=== PATIENT | female | born 1980 | race African-American/Black ===

== ENCOUNTER 2019-07-27 07:28 | Emergency (ER) | payer MEDICAID, OTHER ==
[~2019-07-27] VITALS: Ht 147.3 cm; Wt 68.3 kg
[2019-07-27 07:32] VITALS: BP 128/87
--- NOTE | 2019-07-27 08:23 | NUR ---
PATIENT PRESENTS TO ED C/O BILATERAL LEG PAIN WHICH RADIATES TO LOWER ABDOMEN AND FLANK AREA. PT STATES THAT SHE FEELS NUMBNESS AND THROBBING 7/10 PAIN, WHICH IS USUALLY ALLEVIATED BY SITITNG. PT TOOK MOTRIN WHICH PROVIDED MINIMAL RELIEF. +NAUSEA, -VOMITING. ABDOMEN TENDER, MORE ON R SIDE. NORMOACTIVE BOWEL SOUNDS. PT ALSO STATES STRONG AMMONIA-LIKE SMELL OF URINE THIS MORNING. -DYSURIA, -NOCTURIA, -D/C. LBM: 3 DAYS AGO, NORMALLY EVERYDAY. VSS; PATIENT POSITIONED FOR COMFORT; HOB ELEVATED; BEDRAILS UP X2; BED DOWN. ER MD MADE AWARE OF PT STATUS. PMH: SCIATICA MEDS: MOTRIN PRN ALLERGIES: SULFA, ERYTHROMYCIN
[2019-07-27 08:35] VITALS: BP 128/87
== END 2019-07-27 08:35 | disposition home or self-care (01) ==
LOC: MED 07:28
DX: N39.0 Urinary tract infection, site not specified (principal); K59.00 Constipation, unspecified; Z88.1 Allergy status to other antibiotic agents; Z98.890 Other specified postprocedural states
CPT/HCPCS: 81002; 81025; 99283

== ENCOUNTER 2019-07-31 14:25 | Emergency (ER) | payer OTHER ==
[~2019-07-31] VITALS: Ht 149.9 cm; Wt 68.0 kg
[2019-07-31 14:45] VITALS: BP 139/73
[2019-07-31 15:59] LABS: BASOPHILS % (AUTO) 0.4 % (0.0-2.0); EOSINOPHILS # (AUTO) 0.1 K/uL (0-0.4); EOSINOPHILS % (AUTO) 0.9 % (0.0-4.0); HEMATOCRIT 38.9 % (36-48); HEMOGLOBIN 12.6 g/dL (12.0-16.0); LYMPHOCYTES # (AUTO) 2.3 K/uL (2.5-16.5); LYMPHOCYTES % (AUTO) 26.7 % (20.5-51.1); MEAN CORPUSCULAR HEMOGLOBIN 25 pg (27-31); MEAN CORPUSCULAR HGB CONC 32 g/dL (33-37); MEAN CORPUSCULAR VOLUME 76.3 fL (80-94); MONOCYTES # (AUTO) 0.5 K/uL (0.8-1.0); NEUTROPHILS # (AUTO) 5.7 K/uL (1.8-7.7); PLATELET COUNT (AUTO) 245 K/uL (140-450); RED BLOOD CELL COUNT(AUTO) 5.09 MIL/uL (4.20-5.40); RED CELL DISTRIBUTION WIDTH 14.6 % (11.6-13.7); WHITE BLOOD COUNT (AUTO) 8.7 K/uL (4.8-10.8)
[2019-07-31 16:17] LABS: ALBUMIN 3.6 g/dL (3.4-5.0); CARBON DIOXIDE 26.1 mmol/L (21-32); CREATININE 0.7 mg/dL (0.6-1.3); POTASSIUM 4.1 mmol/L (3.5-5.1); TOTAL BILIRUBIN 0.3 mg/dL (0.0-1.0)
[2019-07-31] MEDS ORDERED: KETOROLAC 30 MG/ML VIAL IM ONE (17:05)
[2019-07-31 17:23] LABS: APPEARANCE,URINE CLEAR (CLEAR); BILIRUBIN,URINE NEGATIVE (NEGATIVE); BLOOD, URINE NEGATIVE (NEGATIVE); COLOR,URINE YELLOW (YELLOW); LEUKOCYTE ESTERASE ,URINE NEGATIVE (NEGATIVE); NITRITE, URINE NEGATIVE (NEGATIVE); PH,URINE 5.5 (5.0-9.0); UGLUCOSE NEGATIVE (NEGATIVE)
[2019-07-31 18:23] VITALS: BP 114/73
== END 2019-07-31 18:23 | disposition home or self-care (01) ==
LOC: MED 14:25
DX: D25.9 Leiomyoma of uterus, unspecified (principal); M79.604 Pain in right leg; M79.605 Pain in left leg; Z88.1 Allergy status to other antibiotic agents; Z98.890 Other specified postprocedural states; Z87.442 Personal history of urinary calculi
CPT/HCPCS: 36415; 76856; 80053; 81003; 81025; 85025; 93976; 96372; 99284; J1885; Q0092; 81002

== ENCOUNTER 2019-11-12 13:41 | Emergency (ER) | payer OTHER ==
[~2019-11-12] VITALS: Ht 149.9 cm; Wt 68.0 kg
[2019-11-12 13:50] VITALS: BP 124/97
[2019-11-12] MEDS ORDERED: ACETAMINOPHEN EXTRA STRENGTH 500 MG TAB PO ONE (14:00)
--- NOTE | 2019-11-12 14:10 | NUR ---
39/F C/O COUGHING BLOOD, RESOLVED EPITAXIS, BODYACHES, CHILLS, HEADACHE, DIZZINESS, X2 DAYS.. DENIES MED HX OR RX. PATIENT STATES PAIN OF 10/10 AT THIS TIME.PATIENT POSITIONED FOR COMFORT; HOB ELEVATED; BEDRAILS UP X1; BED DOWN. ER MD MADE AWARE OF PT STATUS.
[2019-11-12] MEDS ORDERED: ONDANSETRON 4 MG/2 ML VIAL IVP ONE (14:30)
[2019-11-12] MEDS ORDERED: NACL 0.9% 1,000 ML IV ONE (14:30)
[2019-11-12] MEDS ORDERED: KETOROLAC 30 MG/ML VIAL IVP ONE (14:30)
[2019-11-12] MEDS ORDERED: PROMETH/CODEINE 6.25-10MG/5ML 5 ML UDC PO ONE (15:45)
[2019-11-12 16:05] VITALS: BP 119/78
--- NOTE | 2019-11-12 16:05 | NUR ---
Patient discharged with v/s stable. Written and verbal after care instructions given and explained. Patient alert, oriented and verbalized understanding of instructions. Ambulatory with steady gait. All questions addressed prior to discharge. ID band removed. Patient advised to follow up with PMD. Rx of IBUPROFEN, ZOFRAN & PROMETHAZINE given. Patient educated on indication of medication including possible reaction and side effects. Opportunity to ask questions provided and answered.
== END 2019-11-12 16:05 | disposition home or self-care (01) ==
LOC: MED 13:41
DX: J20.9 Acute bronchitis, unspecified (principal); Z88.1 Allergy status to other antibiotic agents
CPT/HCPCS: 71046; 81002; 81025; 87804; 96361; 96374; 96375; 99284; J1885; J2405; J7030

== ENCOUNTER 2020-04-13 17:18 | Emergency (ER) | payer OTHER ==
[~2020-04-13] VITALS: Ht 149.9 cm; Wt 63.5 kg
[2020-04-13 17:34] VITALS: BP 147/92
[2020-04-13] MEDS ORDERED: PROCHLORPERAZINE 5 MG TAB PO STA (17:38)
[2020-04-13] MEDS ORDERED: HYDROcodone/APAP 5/325 MG 1 TAB TAB PO ONE (18:40)
[2020-04-13 19:00] VITALS: BP 134/82
== END 2020-04-13 18:59 | disposition home or self-care (01) ==
LOC: MED 17:18
DX: S06.0X0A Concussion without loss of consciousness, initial encounter (principal); S16.1XXA Strain of muscle, fascia and tendon at neck level, initial encounter; V09.9XXA Pedestrian injured in unspecified transport accident, initial encounter; Y93.89 Activity, other specified; Y92.89 Other specified places as the place of occurrence of the external cause; Y99.8 Other external cause status
CPT/HCPCS: 70450; 72125; 99285; Q0164

== ENCOUNTER 2021-02-08 16:02 | Emergency (ER) | payer MEDICAID, OTHER ==
[~2021-02-08] VITALS: Ht 149.9 cm; Wt 63.5 kg
[2021-02-08 16:04] VITALS: BP 105/59
--- NOTE | 2021-02-08 16:10 | NUR ---
Patient wheelchair assisted to bed 9.
--- NOTE | 2021-02-08 16:15 | NUR ---
40 y/o F coming in from home with c/c RLQ abdominal pain x 2.5-3 weeks. Patient A&Ox4, wheelchair assisted and states 3 days ago, pain worsen despite pain management. Patient states associated nausea without vomiting. Patient reports pain 10/10, shooting/constant, radiating to right anterior/posterior thigh and R buttocks. Patient states Motrin 400mg @ 1500 & prescribed Flexeril @ 1300 without relief. Patient reports pain worsening with walking. Last BM today; normal. Pt denies urinary symptoms, SOB, chest pain, back pain, dizziness, headache. Pt placed into a gown, surveillance monitor. Respirations even/unlabored. Bed locked in lowest position, side rails x 1, call light in reach. PMH: Sciatica Meds: Flexeril Allergies: Erythromycin, sulfa Sx: uterine fibroids 2lbs removed 10/2200; cholecystectomy 10/2020.
--- NOTE | 2021-02-08 16:35 | NUR ---
Dr. Parker is evaluating patient at bedside.
[2021-02-08] MEDS: NACL 0.9% 1,000 ML IV ONE (16:58)
[2021-02-08 17:11] LABS: BASOPHILS % (AUTO) 0.5 % (0.0-2.0); EOSINOPHILS # (AUTO) 0.1 K/uL (0-0.4); EOSINOPHILS % (AUTO) 1.3 % (0.0-4.0); HEMATOCRIT 40.1 % (36-48); HEMOGLOBIN 12.8 g/dL (12.0-16.0); LYMPHOCYTES # (AUTO) 2.3 K/uL (2.5-16.5); LYMPHOCYTES % (AUTO) 25.9 % (20.5-51.1); MEAN CORPUSCULAR HEMOGLOBIN 23 pg (27-31); MEAN CORPUSCULAR HGB CONC 32 g/dL (33-37); MEAN CORPUSCULAR VOLUME 71.4 fL (80-94); MONOCYTES # (AUTO) 0.5 K/uL (0.8-1.0); MONOCYTES % (AUTO) 5.7 % (1.7-9.3); NEUTROPHILS # (AUTO) 5.9 K/uL (1.8-7.7); NEUTROPHILS % (AUTO) 66.6 % (42.2-75.2); PLATELET COUNT (AUTO) 314 K/uL (140-450); RED BLOOD CELL COUNT(AUTO) 5.62 MIL/uL (4.20-5.40); RED CELL DISTRIBUTION WIDTH 16.5 % (11.6-13.7); WHITE BLOOD COUNT (AUTO) 8.8 K/uL (4.8-10.8)
[2021-02-08] MEDS: ONDANSETRON 4 MG/2 ML VIAL IVP ONE (17:12)
[2021-02-08] MEDS: MORPHINE SULFATE 4 MG/ML SYR IVP ONE (17:13)
--- NOTE | 2021-02-08 17:22 | NUR ---
Patient ambulated to restroom for urine sample.
--- NOTE | 2021-02-08 17:22 | NUR ---
Pt reports positive relief; denies any nausea. States pain 7/10.
--- NOTE | 2021-02-08 17:22 | NUR ---
Pt signed consent form for CT Abdomen/Pelvis.
[2021-02-08 17:24] LABS: ALBUMIN 4.4 g/dL (3.4-5.0); ANION GAP 14.9 (8-16); CARBON DIOXIDE 23.7 mmol/L (21-32); CREATININE 0.8 mg/dL (0.6-1.3); POTASSIUM 3.6 mmol/L (3.5-5.1); TOTAL BILIRUBIN 0.7 mg/dL (0.0-1.0)
--- NOTE | 2021-02-08 17:33 | NUR ---
Pt ambulated from restroom back to bed; IVF continued. Bed locked in lowest position, side rails x 1, call light in reach.
[2021-02-08] MEDS ORDERED: diphenhydrAMINE 12.5 MG/5 ML UDC ONE (17:47)
[2021-02-08] MEDS ORDERED: diphenhydrAMINE 50 MG/ML VIAL ONE (17:48)
[2021-02-08] MEDS: diphenhydrAMINE 50 MG/ML VIAL IVP ONE (17:55)
--- NOTE | 2021-02-08 17:55 | NUR ---
ACCIDENTLY REQUESTED TO PULL OUT BENEDRYL P ON PYXIS, WRONG ORDER. NEVER PULLED OR GAVE MEDICATION.
--- NOTE | 2021-02-08 18:35 | NUR ---
Patient resting in position of comfort. Respirations even/unlabored. Bed locked in lowest position, side rails x 1, call light in reach.
[2021-02-08] MEDS ORDERED: ACET-8386 PO (19:09)
--- NOTE | 2021-02-08 19:13 | NUR ---
Pt states pain 0/10.
[2021-02-08 19:25] VITALS: BP 111/69
--- NOTE | 2021-02-08 19:25 | NUR ---
Patient discharged with v/s stable. Written and verbal after care instructions ON ABDOMINAL PAIN given and explained. Patient alert, oriented and verbalized understanding of instructions. Ambulatory with steady gait. All questions addressed prior to discharge. ID band removed. Patient advised to follow up with PMD. Rx of HYDROCODONE/ACETAMINOPHEN 5-325MG given. Patient educated on indication of medication including possible reaction and side effects. Opportunity to ask questions provided and answered.
== END 2021-02-08 19:25 | disposition home or self-care (01) ==
LOC: MED 16:02
DX: D25.9 Leiomyoma of uterus, unspecified (principal); Z88.2 Allergy status to sulfonamides
CPT/HCPCS: 36415; 74177; 80053; 83690; 84484; 84702; 85025; 96361; 96374; 96375; 99285; J1200; J2270; J2405; J7030; Q0163; Q9967

== ENCOUNTER 2021-02-16 02:45 | Emergency (ER) | payer MEDICAID ==
[~2021-02-16] VITALS: Ht 149.9 cm; Wt 63.5 kg
[~2021-02-16 02:45] MED LIST: ACET-8386 PO
[2021-02-16 02:52] VITALS: BP 150/60
--- NOTE | 2021-02-16 02:52 | NUR ---
TO BED AMBULATORY
--- NOTE | 2021-02-16 03:08 | NUR ---
ERMD AT BEDSIDE FOR MEDICAL EVALUATION.
[2021-02-16] MEDS ORDERED: NACL 0.9% 1,000 ML IV ONE (03:10)
[2021-02-16] MEDS ORDERED: ONDANSETRON 4 MG/2 ML VIAL IVP ONE (03:10)
[2021-02-16] MEDS ORDERED: MAGNESIUM CITRATE 300 ML BTL PO ONE (03:10)
[2021-02-16] MEDS ORDERED: KETOROLAC 30 MG/ML VIAL IVP ONE (03:10)
[2021-02-16] MEDS ORDERED: SODIUM PHOSPHATE 118 ML ENEM RC ONE (03:10)
--- NOTE | 2021-02-16 03:10 | NUR ---
PATIENT 40 Y/O FEMALE BIB SELF FOR C/O RUQ PAIN RADIATING TO R LOWER BACK/ FLANK. PER PATIENT HAS HAD THIS TYPE OF PAIN BEFORE AND BELIVES IT IS D/T CONSTIPATION X 4 DAYS. PATIENT STATES, "I'VE HAD A LONG HISTORY OF STOMACH ISSUES BUT NORMALLY IM OK WITH A GOOD DIET." PER PATIENT HAS NOT HAD A BM X 4 DAYS. PATIENT ABD IS SOFT, ROUND, AND NON-TENDER TO TOUCH. PATIENT ALSO HAS C/O NAUSEA WITH NO EPISODES OF VOMITING. MEDHX: IBS, FIBROIDS, "CHRONIC STOMACH ISSUES." SEE ALLERGY LIST.
--- NOTE | 2021-02-16 03:39 | NUR ---
PATIENT AMBULATED TO RESTROOM WITH STEADY GAIT.
[2021-02-16 03:43] LABS: BASOPHILS # (AUTO) 0.1 K/uL (0.00-0.22); BASOPHILS % (AUTO) 0.7 % (0.0-2.0); EOSINOPHILS # (AUTO) 0.1 K/uL (0-0.4); EOSINOPHILS % (AUTO) 1.4 % (0.0-4.0); HEMATOCRIT 38.5 % (36-48); HEMOGLOBIN 12.4 g/dL (12.0-16.0); LYMPHOCYTES # (AUTO) 3.4 K/uL (2.5-16.5); LYMPHOCYTES % (AUTO) 34.4 % (20.5-51.1); MEAN CORPUSCULAR HEMOGLOBIN 23 pg (27-31); MEAN CORPUSCULAR HGB CONC 32 g/dL (33-37); MEAN CORPUSCULAR VOLUME 71.9 fL (80-94); MONOCYTES # (AUTO) 0.6 K/uL (0.8-1.0); MONOCYTES % (AUTO) 6.5 % (1.7-9.3); NEUTROPHILS # (AUTO) 5.6 K/uL (1.8-7.7); PLATELET COUNT (AUTO) 271 K/uL (140-450); RED BLOOD CELL COUNT(AUTO) 5.36 MIL/uL (4.20-5.40); WHITE BLOOD COUNT (AUTO) 9.9 K/uL (4.8-10.8)
[2021-02-16 04:14] LABS: ALBUMIN 4.1 g/dL (3.4-5.0); ANION GAP 17.4 (8-16); CARBON DIOXIDE 24.7 mmol/L (21-32); CREATININE 0.8 mg/dL (0.6-1.3); POTASSIUM 4.1 mmol/L (3.5-5.1); TOTAL BILIRUBIN 0.3 mg/dL (0.0-1.0)
[2021-02-16] MEDS ORDERED: HALOPERIDOL IM 5 MG/ML VIAL IVP ONE (04:25)
[2021-02-16] MEDS ORDERED: diphenhydrAMINE 50 MG/ML VIAL IVP ONE (04:25)
[2021-02-16] MEDS ORDERED: HALOPERIDOL IM 5 MG/ML VIAL ONE (05:06)
--- NOTE | 2021-02-16 05:35 | NUR ---
PATIENT TAKEN TO CT VIA W/C. PATIENT SIGNED CONSENT FORM.
--- NOTE | 2021-02-16 05:47 | NUR ---
PATIENT RETURNED FROM CT VIA W/C. PATIENT PLACED ON CARIDAC MONITOR.
--- NOTE | 2021-02-16 06:20 | NUR ---
PATIENT STATES PAIN NOW 0/10 IN ABDOMEN. "I LET OUT A LITTLE BIT OF THE GAS AND THE PRESSURE WENT AWAY." PATIENT STATES SHE ALSO HAD X1 BM, SMALL, FORMED, AND BROWN IN COLOR. ERMD MADE AWARE.
[2021-02-16] MEDS ORDERED: BISA5TAB79 PO (06:27)
[2021-02-16] MEDS ORDERED: SENN-72 PO (06:27)
--- NOTE | 2021-02-16 06:49 | NUR ---
IV removed, catheter intact and site benign. Applied folded 4x4 gauze and tape to stop bleeding. Patient is currently ambulatory with steady gait, able to walk unassisted. Positive gag reflex. Alert and oriented. Is not driving self for discharge out of facility. NADR FROM [facility].
[2021-02-16 06:50] VITALS: BP 127/81
--- NOTE | 2021-02-16 06:50 | NUR ---
Patient discharged with v/s stable. Written and verbal after care instructions given and explained. Patient alert, oriented and verbalized understanding of instructions. Ambulatory with steady gait. All questions addressed prior to discharge. ID band removed. Patient advised to follow up with PMD. Rx of SENNA, BISACODYL given. Patient educated on indication of medication including possible reaction and side effects. Opportunity to ask questions provided and answered.
== END 2021-02-16 06:50 | disposition home or self-care (01) ==
LOC: MED 02:45
DX: K59.00 Constipation, unspecified (principal); R11.0 Nausea; Z88.1 Allergy status to other antibiotic agents; Z79.899 Other long term (current) drug therapy
CPT/HCPCS: 36415; 74177; 80053; 81002; 81025; 85025; 93005; 96361; 96374; 96375; 99285; J1200; J1630; J1885; J2405; J7030; Q9967